=== PATIENT | female | born 1955 | race Caucasian/White ===

== ENCOUNTER 2018-06-16 08:50 | Outpatient (REF) | payer OTHER, SELFPAY ==
[2018-06-16 21:00] LABS: Anion Gap 9.1 mmol/L (3-11); BUN 19 mg/dL (7-18); CO2 27.9 mmol/L (21.0-32.0); CREATININE 0.85 mg/dL (0.55-1.02); Calcium 9.4 mg/dL (8.5-10.1); Chloride 101 mmol/L (98-107); Glucose 89 mg/dL (70-100); Potassium 4.6 mmol/L (3.5-5.1); Sodium 138 mmol/L (136-145)
== END 2018-06-16 09:10 ==
LOC: NCHCN 08:50
PROVIDERS: PCP Nurse Practitioner Family; Visit Provider Nurse Practitioner Family
DX: E78.5 Hyperlipidemia, unspecified (principal); E03.9 Hypothyroidism, unspecified; I35.0 Nonrheumatic aortic (valve) stenosis
CPT/HCPCS: 80048; 84443

== ENCOUNTER 2019-06-12 21:43 | Outpatient (REF) | payer OTHER, SELFPAY ==
[2019-06-12 21:52] LABS: Calculated LDL 69 mg/dL; Cholesterol 153 mg/dL (50-200); HDL Cholesterol 78 mg/dL (40-60); TSH 4.52 uIU/mL (0.36-3.74); Triglyceride 30 mg/dL (30-150)
== END 2019-06-12 22:03 ==
LOC: NCHCN 21:43
PROVIDERS: PCP Nurse Practitioner Family; Visit Provider Nurse Practitioner Family
DX: E03.9 Hypothyroidism, unspecified (principal); E78.5 Hyperlipidemia, unspecified
CPT/HCPCS: 80061; 84443

== ENCOUNTER 2020-09-17 22:06 | Outpatient (REF) | payer MEDICAID, SELFPAY | END 2020-09-17 22:26 | LOC: NCHCN 22:06 | PROVIDERS: PCP Nurse Practitioner Family; Visit Provider Nurse Practitioner Family | DX: E03.9 Hypothyroidism, unspecified (principal); Z86.79 Personal history of other diseases of the circulatory system | CPT/HCPCS: 84443 ==

== ENCOUNTER 2020-11-11 17:04 | Outpatient (REF) | payer MEDICAID, SELFPAY ==
[2020-11-11 20:48] LABS: Abs Immature Grans 0.01 10^3/uL (0.0-0.06); Absolute Basophil Count 0.08 10^3/uL (0.0-0.2); Absolute Eosinophil Count 0.04 10^3/uL (0.0-0.7); Absolute Lymphocyte Count 1.54 10^3/uL (1.2-3.4); Absolute Neutrophil Count 5.81 10^3/uL (1.2-6.7); Eosinophils % 0.5; HCT 28.3 % (36.0-46.0); HGB 9.4 g/dL (11.2-15.7); Immature Grans % 0.1; Lymphocytes % 19.3; MCH 30.1 pg (27.0-33.0); MCHC 33.2 % (32.0-36.0); MCV 90.7 fL (80-95); Monocytes % 6.3; Neutrophils % 72.8; Nucleated RBC 0 %; Platelet Count 350 10^3/uL (130-400); RBC 3.12 10^6/uL (3.93-5.22); RDW 12.7 % (11.7-14.6); WBC 7.98 10^3/uL (4.4-10.8)
[2020-11-11 21:01] LABS: Anion Gap 10.9 mmol/L (3-11); BUN 16 mg/dL (7-18); CO2 26.1 mmol/L (21.0-32.0); CREATININE 0.9 mg/dL (0.55-1.02); Calcium 9.2 mg/dL (8.5-10.1); Chloride 100 mmol/L (98-107); Glucose 94 mg/dL (74-106); Potassium 4.3 mmol/L (3.5-5.1); Sodium 137 mmol/L (136-145)
== END 2020-11-11 17:05 | disposition home or self-care (01) ==
LOC: NCHCN 17:04
PROVIDERS: PCP Nurse Practitioner Family; Visit Provider Internal Medicine
DX: I34.0 Nonrheumatic mitral (valve) insufficiency (principal)
CPT/HCPCS: 80048; 85025

== ENCOUNTER 2020-11-15 18:03 | Outpatient (REF) | payer MEDICAID, SELFPAY ==
[2020-11-15 20:59] LABS: HCT 26.7 % (36.0-46.0); HGB 8.9 g/dL (11.2-15.7); MCH 29.7 pg (27.0-33.0); MCHC 33.3 % (32.0-36.0); MPV 10.2 fL (8.0-11.0); Platelet Count 379 10^3/uL (130-400); RDW 12.4 % (11.7-14.6); RDW-SD 40.7 fL; Reticulocyte 1.9 % (0.5-2.4); WBC 11.17 10^3/uL (4.4-10.8)
[2020-11-15 21:14] LABS: Iron 13 ug/dL (50-170); Total Iron Binding Capacity 411 ug/dL (250-450); Transferrin Sat 3 % (15-50)
[2020-11-15 21:51] LABS: ALT 31 U/L (14-59); AST 22 U/L (15-37); Albumin 3.8 g/dL (3.4-5.0); Alkaline Phosphatase 77 U/L (46-116); Bilirubin, Total 0.3 mg/dL (0.2-1.0); Ferritin 6 ng/mL (8-252); Total Protein 6.6 g/dL (6.4-8.2); Vitamin B12 572 pg/mL (193-986)
[2020-11-15 22:06] LABS: LDH 179 U/L (81-234)
[2020-11-18 10:11] LABS: Haptoglobin 89 mg/dL (32-197)
== END 2020-11-15 18:04 | disposition home or self-care (01) ==
LOC: NCHCN 18:03
PROVIDERS: PCP Nurse Practitioner Family; Visit Provider Internal Medicine
DX: D64.9 Anemia, unspecified (principal)
CPT/HCPCS: 80076; 85027; 82607; 82728; 83010; 83540; 83550; 83615; 85045

== ENCOUNTER 2020-12-02 22:06 | Outpatient (REF) | payer MEDICAID, SELFPAY ==
[2020-12-02 21:24] LABS: HCT 31.3 % (36.0-46.0); HGB 10.3 g/dL (11.2-15.7); MCH 28.1 pg (27.0-33.0); MCHC 32.9 % (32.0-36.0); MCV 85.5 fL (80-95); MPV 10.2 fL (8.0-11.0); Platelet Count 382 10^3/uL (130-400); RBC 3.66 10^6/uL (3.93-5.22); RDW-SD 40.9 fL; WBC 10.16 10^3/uL (4.4-10.8)
== END 2020-12-02 22:07 | disposition home or self-care (01) ==
LOC: NCHCN 22:06
PROVIDERS: PCP Nurse Practitioner Family; Visit Provider Nurse Practitioner Family
DX: D64.9 Anemia, unspecified (principal)
CPT/HCPCS: 85027

== ENCOUNTER 2021-03-17 11:40 | Outpatient (REF) | payer MEDICAID, SELFPAY ==
[2021-03-17 16:28] LABS: TSH 2.05 uIU/mL (0.36-3.74)
== END 2021-03-17 11:41 | disposition home or self-care (01) ==
LOC: NCHCN 11:40
PROVIDERS: PCP Nurse Practitioner Family; Visit Provider Nurse Practitioner Family
DX: E03.9 Hypothyroidism, unspecified (principal)
CPT/HCPCS: 84443

== ENCOUNTER 2022-09-08 13:48 | Outpatient (REF) | payer MEDICARE, MEDICAID, SELFPAY ==
[2022-09-08 14:30] LABS: HCT 37.6 % (36.0-46.0); HGB 12.8 g/dL (11.2-15.7); MCH 30.3 pg (27.0-33.0); MCV 89 fL (80-95); MPV 10.8 fL (8.0-11.0); Platelet Count 313 10^3/uL (130-400); RBC 4.22 10^6/uL (3.93-5.22); RDW 12.8 % (11.7-14.6); WBC 6.78 10^3/uL (4.4-10.8)
[2022-09-08 15:29] LABS: ALT 23 U/L (14-59); AST 25 U/L (15-37); Alkaline Phosphatase 80 U/L (46-116); Anion Gap 6.7 mmol/L (3-11); BUN 23 mg/dL (7-18); Bilirubin, Total 0.4 mg/dL (0.2-1.0); CO2 29.3 mmol/L (21.0-32.0); CREATININE 0.9 mg/dL (0.55-1.02); Calcium 9.3 mg/dL (8.5-10.1); Chloride 101 mmol/L (98-107); Estimated GFR 71.39 (mL/min/1.73m2); Glucose 86 mg/dL (74-106); Potassium 4.2 mmol/L (3.5-5.1); Sodium 137 mmol/L (136-145); TSH 4.44 uIU/mL (0.36-3.74); Total Protein 7.6 g/dL (6.4-8.2)
== END 2022-09-08 13:49 | disposition home or self-care (01) ==
LOC: NCHCN 13:48
PROVIDERS: PCP Nurse Practitioner Family; Visit Provider Nurse Practitioner Family
DX: Z87.19 Personal history of other diseases of the digestive system (principal); Z00.00 Encounter for general adult medical examination without abnormal findings; Z86.79 Personal history of other diseases of the circulatory system; E03.9 Hypothyroidism, unspecified
CPT/HCPCS: 80053; 85027; 84443

== ENCOUNTER 2022-10-29 16:11 | Outpatient (REF) | payer MEDICARE, MEDICAID, SELFPAY ==
[2022-10-29 21:01] LABS: TSH 4.74 uIU/mL (0.36-3.74)
== END 2022-10-29 16:12 | disposition home or self-care (01) ==
LOC: NCHCN 16:11
PROVIDERS: PCP Nurse Practitioner Family; Visit Provider Nurse Practitioner Family
DX: E03.9 Hypothyroidism, unspecified (principal)
CPT/HCPCS: 84443

== ENCOUNTER 2023-03-16 12:28 | Outpatient (REF) | payer MEDICARE, MEDICAID, SELFPAY ==
[2023-03-16 14:43] LABS: HCT 40.4 % (36.0-46.0); HGB 13.8 g/dL (11.2-15.7); MCH 29.7 pg (27.0-33.0); MCHC 34.2 % (32.0-36.0); MCV 87 fL (80-95); MPV 10.2 fL (8.0-11.0); Platelet Count 339 10^3/uL (130-400); RBC 4.64 10^6/uL (3.93-5.22); RDW 13.1 % (11.7-14.6); RDW-SD 41.6 fL
[2023-03-16 15:05] LABS: TSH 2.55 uIU/mL (0.36-3.74)
== END 2023-03-16 12:29 | disposition home or self-care (01) ==
LOC: NCHCN 12:28
PROVIDERS: PCP Nurse Practitioner Family; Visit Provider Nurse Practitioner Family
DX: E03.9 Hypothyroidism, unspecified (principal); Z87.19 Personal history of other diseases of the digestive system
CPT/HCPCS: 85027; 84443

== ENCOUNTER 2023-06-21 18:29 | Outpatient (REF) | payer MEDICARE, MEDICAID, SELFPAY ==
[2023-06-21 22:00] LABS: HCT 31.9 % (36.0-46.0); HGB 11.2 g/dL (11.2-15.7); MCH 30.9 pg (27.0-33.0); MCHC 35.1 % (32.0-36.0); MCV 88 fL (80-95); MPV 10.2 fL (8.0-11.0); Platelet Count 341 10^3/uL (130-400); RBC 3.63 10^6/uL (3.93-5.22); RDW-SD 42.1 fL; WBC 8.35 10^3/uL (4.4-10.8)
[2023-06-21 22:18] LABS: Anion Gap 10.7 mmol/L (3-11); BUN 15 mg/dL (7-18); CO2 25.3 mmol/L (21.0-32.0); CREATININE 0.7 mg/dL (0.55-1.02); Calcium 9.6 mg/dL (8.5-10.1); Chloride 95 mmol/L (98-107); Estimated GFR 95.92 (mL/min/1.73m2); Glucose 97 mg/dL (74-106); Potassium 3.8 mmol/L (3.5-5.1); Sodium 131 mmol/L (136-145)
== END 2023-06-21 18:30 | disposition home or self-care (01) ==
LOC: NCHCN 18:29
PROVIDERS: PCP Nurse Practitioner Family; Visit Provider Registered Nurse
DX: K92.1 Melena (principal); Z79.01 Long term (current) use of anticoagulants; I35.0 Nonrheumatic aortic (valve) stenosis; E03.9 Hypothyroidism, unspecified
CPT/HCPCS: 80048; 85027

== ENCOUNTER 2023-06-22 17:59 | Outpatient (REF) | payer MEDICARE, MEDICAID, SELFPAY ==
[2023-06-22 14:44] LABS: HGB 11.2 g/dL (11.2-15.7)
== END 2023-06-22 18:00 | disposition home or self-care (01) ==
LOC: NCHCN 17:59
PROVIDERS: PCP Nurse Practitioner Family; Visit Provider Nurse Practitioner Family
DX: K92.1 Melena (principal)
CPT/HCPCS: 85018

== ENCOUNTER 2023-06-24 20:27 | Outpatient (REF) | payer MEDICARE, MEDICAID, SELFPAY ==
[2023-06-24 16:40] LABS: HCT 30.6 % (36.0-46.0); HGB 10.3 g/dL (11.2-15.7); MCHC 33.7 % (32.0-36.0); MCV 89 fL (80-95); MPV 10.1 fL (8.0-11.0); Platelet Count 338 10^3/uL (130-400); RBC 3.43 10^6/uL (3.93-5.22); RDW 13.4 % (11.7-14.6); RDW-SD 44.2 fL; WBC 6.21 10^3/uL (4.4-10.8)
== END 2023-06-24 20:28 | disposition home or self-care (01) ==
LOC: NCHCN 20:27
PROVIDERS: PCP Nurse Practitioner Family; Visit Provider Nurse Practitioner Family
DX: K92.1 Melena (principal)
CPT/HCPCS: 85027

== ENCOUNTER 2023-06-28 20:07 | Outpatient (REF) | payer MEDICARE, SELFPAY ==
[2023-06-28 22:07] LABS: HCT 29.1 % (36.0-46.0); HGB 9.7 g/dL (11.2-15.7); MCH 29.7 pg (27.0-33.0); MCHC 33.3 % (32.0-36.0); MCV 89 fL (80-95); Platelet Count 345 10^3/uL (130-400); RBC 3.27 10^6/uL (3.93-5.22); RDW-SD 42.7 fL; WBC 7.14 10^3/uL (4.4-10.8)
== END 2023-06-28 20:08 | disposition home or self-care (01) ==
LOC: NCHCN 20:07
PROVIDERS: PCP Nurse Practitioner Family; Visit Provider Nurse Practitioner Family
DX: Z87.19 Personal history of other diseases of the digestive system (principal); K92.1 Melena
CPT/HCPCS: 85027

== ENCOUNTER 2023-07-01 09:41 | Outpatient (REF) | payer MEDICARE, BC, SELFPAY ==
[2023-07-01 14:36] LABS: HCT 31.4 % (36.0-46.0); HGB 10.7 g/dL (11.2-15.7); MCH 30.1 pg (27.0-33.0); MCHC 34.1 % (32.0-36.0); MCV 88 fL (80-95); MPV 10.1 fL (8.0-11.0); Platelet Count 359 10^3/uL (130-400); RBC 3.56 10^6/uL (3.93-5.22); RDW 12.9 % (11.7-14.6); WBC 7.15 10^3/uL (4.4-10.8)
== END 2023-07-01 09:42 | disposition home or self-care (01) ==
LOC: NCHCN 09:41
PROVIDERS: PCP Nurse Practitioner Family; Visit Provider Nurse Practitioner Family
DX: Z87.19 Personal history of other diseases of the digestive system (principal); Z79.01 Long term (current) use of anticoagulants
CPT/HCPCS: 85027

== ENCOUNTER 2023-07-05 15:15 | Outpatient (REF) | payer MEDICARE, BC, SELFPAY ==
[2023-07-05 21:12] LABS: HCT 31.5 % (36.0-46.0); HGB 10.5 g/dL (11.2-15.7); MCH 29.5 pg (27.0-33.0); MCHC 33.3 % (32.0-36.0); MCV 89 fL (80-95); MPV 10.1 fL (8.0-11.0); Platelet Count 387 10^3/uL (130-400); RBC 3.56 10^6/uL (3.93-5.22); RDW-SD 42.7 fL; WBC 9.21 10^3/uL (4.4-10.8)
== END 2023-07-05 15:16 | disposition home or self-care (01) ==
LOC: NCHCN 15:15
PROVIDERS: PCP Nurse Practitioner Family; Visit Provider Nurse Practitioner Family
DX: Z87.19 Personal history of other diseases of the digestive system (principal)
CPT/HCPCS: 85027

== ENCOUNTER 2024-06-27 19:01 | Outpatient (REF) | payer MEDICARE, BC, SELFPAY ==
[2024-06-27 22:27] LABS: ALT 24 U/L (14-59); AST 28 U/L (15-37); Alkaline Phosphatase 91 U/L (46-116); Anion Gap 8.6 mmol/L (3-11); BUN 17 mg/dL (7-18); Bilirubin, Total 0.43 mg/dL (0.2-1.0); CO2 27.4 mmol/L (21.0-32.0); Calcium 9.5 mg/dL (8.5-10.1); Calculated LDL 78 mg/dL (<100); Chloride 98 mmol/L (98-107); Cholesterol 177 mg/dL (<200); Estimated GFR 62.13 (mL/min/1.73m2); Glucose 88 mg/dL (74-106); HDL Cholesterol 89 mg/dL (40-60); Potassium 4.1 mmol/L (3.5-5.1); Sodium 134 mmol/L (136-145); TSH 1.92 uIU/Ml (0.36-3.74); Triglyceride 51 mg/dL (<150)
== END 2024-06-27 19:02 | disposition home or self-care (01) ==
LOC: NCHCN 19:01
PROVIDERS: PCP Nurse Practitioner Family; Visit Provider Family Medicine
DX: E03.9 Hypothyroidism, unspecified (principal); I48.0 Paroxysmal atrial fibrillation
CPT/HCPCS: 80053; 80061; 84443

== ENCOUNTER 2024-11-21 08:42 | Outpatient (REF) | payer MEDICARE, BC, SELFPAY | END 2024-11-21 08:43 | disposition home or self-care (01) | LOC: NCHCN 08:42 | PROVIDERS: PCP Nurse Practitioner Family; Visit Provider Physician Assistant | DX: R30.0 Dysuria (principal); B96.29 Other Escherichia coli [E. coli] as the cause of diseases classified elsewhere | CPT/HCPCS: 87077; 87086; 87186 ==

== ENCOUNTER 2024-12-11 14:18 | Outpatient (REF) | payer MEDICARE, BC, SELFPAY ==
[2024-12-11 14:49] LABS: HCT 38.7 % (36.0-46.0); HGB 13.2 g/dL (11.2-15.7); MCH 30.1 pg (27.0-33.0); MCHC 34.1 % (32.0-36.0); MCV 88 fL (80-95); MPV 9.5 fL (8.0-11.0); Platelet Count 315 10^3/uL (130-400); RBC 4.39 10^6/uL (3.93-5.22); RDW 13.1 % (11.7-14.6); RDW-SD 42.2 fL; WBC 9.41 10^3/uL (4.4-10.8)
== END 2024-12-11 14:19 | disposition home or self-care (01) ==
LOC: NCHCN 14:18
PROVIDERS: PCP Nurse Practitioner Family; Visit Provider Nurse Practitioner Family
DX: Z87.19 Personal history of other diseases of the digestive system (principal); Z13.818 Encounter for screening for other digestive system disorders
CPT/HCPCS: 85027

== ENCOUNTER 2024-12-14 10:14 | Outpatient (REF) | payer MEDICARE, BC, SELFPAY | END 2024-12-14 10:15 | disposition home or self-care (01) | LOC: NCHCN 10:14 | PROVIDERS: PCP Nurse Practitioner Family; Visit Provider Nurse Practitioner Family | DX: R35.0 Frequency of micturition (principal); B96.29 Other Escherichia coli [E. coli] as the cause of diseases classified elsewhere | CPT/HCPCS: 87077; 87086; 87186 ==

== ENCOUNTER 2025-02-12 11:51 | Outpatient (REF) | payer MEDICARE, BC, SELFPAY ==
[2025-02-12 15:49] LABS: Anion Gap 5.2 mmol/L (3-11); BUN 17 mg/dL (7-18); CO2 30.8 mmol/L (21.0-32.0); Calcium 9.4 mg/dL (8.5-10.1); Chloride 100 mmol/L (98-107); Estimated GFR 61.75 (mL/min/1.73m2); Glucose 93 mg/dL (74-106); Potassium 4.8 mmol/L (3.5-5.1); Sodium 136 mmol/L (136-145); TSH 3.72 uIU/mL (0.36-3.74); Vitamin D 25 Total 63 ng/mL (30-100)
== END 2025-02-12 11:52 | disposition home or self-care (01) ==
LOC: NCHCN 11:51
PROVIDERS: PCP Nurse Practitioner Family; Visit Provider Nurse Practitioner Family
DX: M81.0 Age-related osteoporosis without current pathological fracture (principal)
CPT/HCPCS: 80048; 82306; 84443

== ENCOUNTER 2025-06-11 14:45 | Outpatient (REF) | payer MEDICARE, BC, SELFPAY ==
[2025-06-11 21:48] LABS: HCT 37.5 % (36.0-46.0); HGB 12.9 g/dL (11.2-15.7); MCH 29.7 pg (27.0-33.0); MCHC 34.4 % (32.0-36.0); MCV 86 fL (80-95); MPV 9.7 fL (8.0-11.0); Platelet Count 299 10^3/uL (130-400); RBC 4.34 10^6/uL (3.93-5.22); RDW 13.2 % (11.7-14.6); RDW-SD 41.8 fL; WBC 8.49 10^3/uL (4.4-10.8)
[2025-06-11 22:12] LABS: ALT 24 U/L (14-59); AST 30 U/L (15-37); Albumin 3.7 g/dL (3.4-5.0); Alkaline Phosphatase 82 U/L (46-116); Anion Gap 7.8 mmol/L (3-11); BUN 19 mg/dL (7-18); Bilirubin, Total 0.4 mg/dL (0.2-1.0); CO2 29.2 mmol/L (21.0-32.0); Calcium 9.4 mg/dL (8.5-10.1); Chloride 98 mmol/L (98-107); Estimated GFR 61.75 (mL/min/1.73m2); Glucose 83 mg/dL (74-106); Potassium 4.5 mmol/L (3.5-5.1); Sodium 135 mmol/L (136-145); TSH 2.42 uIU/mL (0.36-3.74); Total Protein 7.2 g/dL (6.4-8.2)
== END 2025-06-11 14:46 | disposition home or self-care (01) ==
LOC: NCHCN 14:45
PROVIDERS: PCP Nurse Practitioner Family; Visit Provider Nurse Practitioner Family
DX: I48.0 Paroxysmal atrial fibrillation (principal)
CPT/HCPCS: 80053; 85027; 84443